=== PATIENT | male | born 1965 | race Caucasian/White ===

== ENCOUNTER 2017-05-03 11:46 | Outpatient (CLI) | payer MEDICAID, OTHER ==
[2017-05-03 12:17] LABS: #Basophils 0.1 thou/uL (0.0-0.2); #Eosinphils 0.1 thou/uL (0.0-0.7); #Lymphocytes 1.7 thou/uL (1.20-3.40); #Monocytes 0.6 thou/uL (0.11-0.59); #Neutrophils 9.3 thou/uL (1.40-6.50); %Basophils 0.5 % (0.0-1.0); %Eosinophils 0.9 % (0.0-10.0); %Lymphocytes 14.5 % (21.0-51.0); %Monocytes 4.7 % (0.0-10.0); %Neutrophils 79.4 % (42.0-75.0); Hemoglobin 16.4 g/dL (14.0-18.0); Mean Corpuscular Hemoglobin 32.1 pg (27.0-31.0); Mean Corpuscular Volume 94.5 fl (80.0-94.0); Mean Platelet Volume 9.6 fL (7.4-10.4); Platelet Count 188 thou/uL (130-400); RBC Distribution Width 12.6 % (11.5-14.5); Red Blood Cell (RBC) Count 5.09 mill/uL (4.70-6.10); White Blood Cell (WBC) Count 11.7 thou/uL (4.8-10.8)
[2017-05-03 12:33] LABS: Hemoglobin A1c 5.7 % (4.0-6.0)
[2017-05-03 12:35] LABS: ALT (SGPT) 40 U/L (8-55); AST (SGOT) 34 U/L (5-34); Albumin 4.3 g/dL (3.5-5.0); Alkaline Phosphatase 144 U/L (40-150); Anion Gap 15 mmol/L (10-20); BUN (Urea Nitrogen) 17 mg/dL (8.4-25.7); Bilirubin, Total 0.4 mg/dL (0.2-1.2); Calc. Creatinine Clearance 0 mL/min (70-130); Calcium 10.7 mg/dL (7.8-10.44); Carbon Dioxide 27 mmol/L (22-29); Cardiac Risk 4.8 (Less than 4.5); Chloride 103 mmol/L (98-107); Cholesterol 203 mg/dl (< 200 Desired); Estimated GFR-MDRD 84; Globulin 3.9 g/dL (2.4-3.5); Glucose 105 mg/dL (70-105); HDL Cholesterol 42 mg/dL (>60 Neg Risk); LDL Cholesterol, Calculated 126 mg/dL; Potassium 4.8 mmol/L (3.5-5.1); Protein, Total 8.2 g/dL (6.0-8.3); Sodium 140 mmol/L (136-145); Triglycerides 175 mg/dL (Less than 150)
== END 2017-05-03 11:47 | disposition home or self-care (01) ==
LOC: MADLABBHPM 11:46
PROVIDERS: ATTEND Family Medicine
DX: R03.0 Elevated blood-pressure reading, without diagnosis of hypertension (principal)
CPT/HCPCS: 36415; 80053; 80061; 83036; 84443; 85025

== ENCOUNTER 2017-07-02 09:38 | Outpatient (CLI) | payer OTHER ==
[~2017-07-02 09:38] MED LIST: Iopamidol 370 76% 100 ML VIAL ONE
[2017-07-02 10:31] LABS: Calc. Creatinine Clearance 0 mL/min (70-130); Estimated GFR-MDRD Greater than 90
--- NOTE | 2017-07-02 15:41 | CT ---
CT ABDOMEN WITH AND WITHOUT IV CONTRAST: DATE: 07/02/17. HISTORY: Complex renal cyst, followup evaluation of intrarenal as well as subcapsular hematoma left kidney. COMPARISON: Studies on 10/19/16 and 05/11/16. FINDINGS: There has been continued interval decrease in the size of the hemorrhagic cystic lesion within the m id portion of the left kidney. This previously measured 3.1 cm craniocaudal x 3.6 cm AP x 2.7 cm tr ansverse, and on today's examination this hemorrhagic cystic structure measures 1.9 cm craniocaudal x 2.7 cm AP x 1.9 cm transverse. There is no subcapsular hematoma seen on study in 2016. Nonobstructing superior pole left renal calculus is again present. IVC filter is again noted in place. Lung bases, liver, spleen, pancreas, bilateral adrenal glands, and right kidney demonstrate a normal CT appearance. There has been no other interval change from prior exam. IMPRESSION: 1. Continued interval decrease in size of hemorrhagic cystic lesion mid portion left kidney. 2. Stable nonobstructing superior pole left renal calculus. POS: [facility]
== END 2017-07-02 09:39 | disposition home or self-care (01) ==
LOC: MADLAB 09:38
PROVIDERS: ATTEND Urology
DX: N28.1 Cyst of kidney, acquired (principal); I26.99 Other pulmonary embolism without acute cor pulmonale; N20.0 Calculus of kidney
CPT/HCPCS: 36415; 74170; 82565

== ENCOUNTER 2017-07-13 15:10 | Emergency (ER) | payer OTHER ==
--- NOTE | 2017-07-13 16:00 | RAD ---
RIGHT ANKLE 3 VIEWS: HISTORY: Slipped down a few stairs 1 day ago. History of a fracture over a year ago. COMPARISON: None. FINDINGS: There is extensive lateral malleolar edema. Compression screws to the talar neck are present. No h ardware complication. 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 No displaced fracture or malalignment is appreciated. Heterotopic ossification on the medial and la teral ligamentous complexes. IMPRESSION: 1. Extensive degenerative changes and evidence of posttraumatic sequelae. 2. Bimalleolar edema suggests relatively recent ankle sprain. 3. No acute fracture or malalignment is appreciated. POS: [facility]
--- NOTE | 2017-07-13 16:33 | RAD ---
RIGHT FOOT 3 VIEWS: HISTORY: Pain. Slipped down a few stairs. COMPARISON: None. FINDINGS: There are erosions of the 5th metatarsal head and proximal phalanx base. There is periarticular ost eopenia and subchondral cyst formation of the great toe metatarsal phalangeal joint. Mild osteopeni a throughout the foot. Large joint effusion of the tibiotalar joint. Compression screws are present retrograde to the erica r head and neck. Lisfranc interval is maintained. IMPRESSION: 1. No acute fracture or malalignment. 2. Large effusion of the ankle joint may be reactive or due to trauma. 3. Erosions of the 5th metatarsal head and proximal phalanx base may be sequelae of inflammatory ar thropathy or gout. 4. Periarticular osteopenia of the great toe metatarsal phalangeal joint with subchondral cyst form ation could be due to inflammation or due to osteopenia. Follow up recommended. POS: [facility]
== END 2017-07-13 16:15 | disposition home or self-care (01) ==
LOC: MADERS 15:10
DX: S93.411A Sprain of calcaneofibular ligament of right ankle, initial encounter (principal); I10 Essential (primary) hypertension; Z79.82 Long term (current) use of aspirin; Z79.2 Long term (current) use of antibiotics; Z79.899 Other long term (current) drug therapy; Z79.891 Long term (current) use of opiate analgesic; W10.9XXA Fall (on) (from) unspecified stairs and steps, initial encounter

== ENCOUNTER 2017-10-29 11:40 | Outpatient (CLI) | payer OTHER ==
--- NOTE | 2017-10-29 13:02 | RAD ---
TWO VIEWS OF THE CHEST: HISTORY: Chronic cough. COMPARISON: 05/20/2016 FINDINGS: Two views of the chest show normal sized cardiomediastinal silhouette. There is no evidence of consol idation, mass, or pleural effusion. The bones are unremarkable. IMPRESSION: No evidence of acute cardiopulmonary disease. POS: [facility]
== END 2017-10-29 11:41 | disposition home or self-care (01) ==
LOC: MADRAD 11:40
PROVIDERS: ATTEND Family Medicine
DX: R05 Cough (principal)
CPT/HCPCS: 71046

== ENCOUNTER 2018-08-18 08:30 | Outpatient (CLI) | payer OTHER ==
[2018-08-18 09:09] LABS: Anion Gap 13 mmol/L (10-20); BUN (Urea Nitrogen) 15 mg/dL (8.4-25.7); Calc. Creatinine Clearance 0 mL/min (70-130); Calcium 9.2 mg/dL (7.8-10.44); Carbon Dioxide 25 mmol/L (22-29); Chloride 110 mmol/L (98-107); Estimated GFR-MDRD Greater than 90; Glucose 97 mg/dL (70-105); Potassium 3.9 mmol/L (3.5-5.1); Sodium 144 mmol/L (136-145)
--- NOTE | 2018-08-18 11:16 | CT ---
CT ABDOMEN AND PELVIS WITH AND WITHOUT IV CONTRAST: Date: 08/18/18 HISTORY: Complex renal cyst. COMPARISON: 07/02/17. FINDINGS: Interval decrease in the size of the previously noted hemorrhagic cystic lesion in the mid portion of the left kidney is seen, currently measuring about 2.0 cm. The nonobstructing superior pole left amelia al calculus is redemonstrated. No calculi seen in the right kidney or visualized portions of either u reter. No hydroureteronephrosis seen on either side. No enhancing mass is identified in either kidney . The lung bases are unremarkable. The liver, spleen, pancreas, and adrenal glands are normal. No calci fied gallstones are seen. IVC filter is again noted. No free air, free fluid, or lymphadenopathy iden tified. There are vascular calcifications without evidence of aneurysmal dilatation of the abdominal aorta. Degenerative changes are present in the spine. IMPRESSION: 1. Continued interval reduction in the size of the hemorrhagic cystic lesion of the left kidney sinc e 07/02/17. 2. Stable, nonobstructing left renal calculus. POS: [facility]
[2018-08-18 11:49] LABS: Bilirubin Negative (Negative); Blood, Urine Negative (Negative); Clarity Clear (Clear); Glucose, Urine (Dipstick) Negative (Negative); Leukocyte Negative (Negative); Nitrite Negative (Negative); Protein, Urine (Dipstick) Negative (Neg-Trace); Urobilinogen 0.2 mg/dL (0.2-1.0); pH, Urine 5.5 (5.0-9.0)
[2018-08-18 11:50] LABS: Bacteria/HPF Rare-Few HPF (None Seen); RBC/HPF 0-3 HPF (0-3); Squamous Epithelial 0-3 HPF (0-3); WBC/HPF 0-3 HPF (0-3)
[2018-08-18] MEDS ORDERED: Iopamidol 370 76% 100 ML VIAL ONE (23:11)
== END 2018-08-18 08:31 | disposition home or self-care (01) ==
LOC: MADLAB 08:30
PROVIDERS: ATTEND Urology
DX: N28.1 Cyst of kidney, acquired (principal); N20.0 Calculus of kidney; N28.9 Disorder of kidney and ureter, unspecified
CPT/HCPCS: 36415; 74170; 80048; 81001

== ENCOUNTER 2018-09-03 17:26 | Emergency (ER) | payer OTHER ==
[2018-09-03 18:18] LABS: Bilirubin Negative (Negative); Blood, Urine Moderate (Negative); Clarity Clear (Clear); Glucose, Urine (Dipstick) Negative (Negative); Leukocyte Negative (Negative); Nitrite Negative (Negative); Protein, Urine (Dipstick) Negative (Neg-Trace); Specific Gravity, Urine 1.015 (1.005-1.030); Urobilinogen 0.2 mg/dL (0.2-1.0); pH, Urine 5.5 (5.0-9.0)
[2018-09-03 18:27] LABS: Bacteria/HPF Rare-Few HPF (None Seen); Squamous Epithelial 0-3 HPF (0-3); WBC/HPF None Seen HPF (0-3)
[2018-09-03] MEDS ORDERED: Tamsulosin HCl 0.4 MG CAP ONE (19:02)
[2018-09-03] MEDS ORDERED: Ketorolac Tromethamine 30 MG/ML VIAL ONE (19:02)
[2018-09-03] MEDS ORDERED: Morphine 4 MG/ML VIAL ONE (19:02)
--- NOTE | 2018-09-03 22:29 | CT ---
ABDOMEN CT WITHOUT CONTRAST PELVIC CT WITHOUT CONTRAST 09/03/18 COMPARISON: 05/11/16, 08/18/18. FINDINGS: ABDOMEN CT: Lung bases are clear. Heart size is normal. No significant pericardial fluid. The visualized aorta is unremarkable. IVC filter is noted. Limited evaluation of solid organs due to lack of IV contrast. Grossly, no solid organ abnormality. T he gallbladder is contracted. No gastrohepatic, retrocrural, or periportal lymphadenopathy. There are stable nonspecific mesenteric lymph nodes. No mesenteric mass, free air, or free fluid. Punctate nonobstructing calculus in the upper pole of the left kidney. There is minimal left sided ob structive uropathy secondary to a solitary calculus in the distal left ureter. Limited evaluation of the alimentary canal. No evidence of bowel obstruction. Normal caliber appendix is noted. Unremarkable colon. PELVIC CT: No mass, lymphadenopathy, free air or free fluid. Urinary bladder is unremarkable. There are no lytic or blastic lesions in the osseous structures. IMPRESSION: 1. Minimal left sided obstructive uropathy secondary to a solitary calculus in the distal left u reter measuring between 4 to 5 mm. 2. Punctate 1 mm nonobstructing calculus in the left intrarenal collecting system. POS: [facility]
== END 2018-09-03 20:00 | disposition home or self-care (01) ==
LOC: MADERS 17:26
DX: N20.0 Calculus of kidney (principal); I10 Essential (primary) hypertension
CPT/HCPCS: 74176; 81003; 81015; 96374; 96375; J1885; J2270

== ENCOUNTER 2018-09-09 04:06 | Emergency (ER) | payer OTHER ==
[2018-09-09] MEDS ORDERED: Morphine 4 MG/ML VIAL ONE (04:56)
[2018-09-09] MEDS ORDERED: Tamsulosin HCl 0.4 MG CAP ONE ×2 (04:56→07:11)
[2018-09-09] MEDS ORDERED: Sodium Chloride 0.9% 1,000 ML ONE (04:56)
[2018-09-09] MEDS ORDERED: Metoclopramide HCl 10 MG/2 ML VIAL ONE (04:56)
[2018-09-09] MEDS ORDERED: Sodium Chloride 0.9% 100 ML ONE (04:56)
[2018-09-09 05:20] LABS: Bilirubin Negative (Negative); Blood, Urine Trace (Negative); Clarity Clear (Clear); Glucose, Urine (Dipstick) Negative (Negative); Leukocyte Negative (Negative); Nitrite Negative (Negative); Protein, Urine (Dipstick) Negative (Neg-Trace); Specific Gravity, Urine 1.015 (1.005-1.030); Urobilinogen 0.2 mg/dL (0.2-1.0)
[2018-09-09 05:44] LABS: Bacteria/HPF None Seen HPF (None Seen); WBC/HPF 0-3 HPF (0-3)
[2018-09-09 05:49] LABS: #Eosinphils 0.1 thou/uL (0.0-0.7); #Lymphocytes 1.5 thou/uL (1.20-3.40); #Monocytes 0.8 thou/uL (0.11-0.59); #Neutrophils 9.2 thou/uL (1.40-6.50); %Basophils 0.3 % (0.0-1.0); %Eosinophils 0.9 % (0.0-10.0); %Lymphocytes 12.8 % (21.0-51.0); %Monocytes 6.6 % (0.0-10.0); %Neutrophils 79.4 % (42.0-75.0); Hemoglobin 13.4 g/dL (14.0-18.0); Mean Corpuscular HGB CONC 32.7 g/dL (32.0-36.0); Mean Corpuscular Volume 91.7 fL (78.0-98.0); Mean Platelet Volume 9.5 fL (7.4-10.4); Platelet Count 193 thou/uL (130-400); RBC Distribution Width 12.3 % (11.5-14.5); Red Blood Cell (RBC) Count 4.47 mill/uL (4.70-6.10); White Blood Cell (WBC) Count 11.6 thou/uL (4.8-10.8)
[2018-09-09 05:54] LABS: Anion Gap 12 mmol/L (10-20); BUN (Urea Nitrogen) 25 mg/dL (8.4-25.7); Calc. Creatinine Clearance 0 mL/min (70-130); Calcium 8.9 mg/dL (7.8-10.44); Carbon Dioxide 23 mmol/L (22-29); Chloride 110 mmol/L (98-107); Estimated GFR-MDRD 78; Glucose 108 mg/dL (70-105); Potassium 3.9 mmol/L (3.5-5.1); Sodium 141 mmol/L (136-145)
[2018-09-09] MEDS ORDERED: Ketorolac Tromethamine 30 MG/ML VIAL ONE (06:47)
--- NOTE | 2018-09-09 08:15 | CT ---
PRELIMINARY REPORT/[facility]/EMERGENTY AFTER-HOURS PROCEDURE CT Abdomen and Pelvis Without Intravenous Contrast EXAM DATE/TIME: 09/09/2018 4:58 AM CLINICAL HISTORY: 53 years old, male; Pain and condition or disease; Kidney or ureter condition; Calculus (stone) in ur eter; Abdominal pain; Acute; Prior surgery; Surgery date: 6+ months; Surgery type: Anjel placement to f emur; Patient HX: Groin pain TECHNIQUE: Axial computed tomography images of the abdomen and pelvis without intravenous contrast. All CT scans at this facility use at least one of these dose optimization techniques: automated expos ure control; mA and/or kV adjustment per patient size (includes targeted exams where dose is matched to clinical indication); or iterative reconstruction. Coronal and sagittal reformatted images were created and reviewed. COMPARISON: CT Stone Protocol 04/18/2016 3:23 AM FINDINGS: Lower thorax: The lung bases are clear. Small hiatal hernia. There may be some mucosal/wall thickenin g involving the lower esophagus. This is nonspecific, but could represent evidence for esophagitis. Neoplasm not entirely excluded. Please correlate clinically. ABDOMEN: Liver: Unremarkable. Gallbladder and bile ducts: No definite gallbladder abnormality by CT. No biliary tree dilation. Pancreas: Unremarkable. Spleen: Unremarkable. Adrenals: Unremarkable. Kidneys and ureters: Right kidney: No intrarenal calculus, hydronephrosis or visible mass. No hydroureter or visible ureteral calculus. Left kidney: Possibly one or 2 very small left intrarenal calculi. Mild left hydronephrosis and hydroureter. There is a 3-4 mm distal left ureteral calculus, about 1 cm from the UVJ. If there is concern for renal mass, postcontrast CT would be more sensitive. Stomach and bowel: There are no CT findings to strongly suggest diverticulitis. Appendix: The appendix is probably identified and there are no suspicious findings for appendicitis.N o pericecal inflammatory changes are seen. PELVIS: Bladder: Urinary bladder appears essentially unremarkable by CT. Reproductive: Unremarkable as visualized. ABDOMEN and PELVIS: Intraperitoneal space: No free air, ascites, or bowel distention. No abnormal mass or fluid collection in the pelvis. Bones/joints: Apparent old rib fractures again noted. Soft tissues: No significant acute finding. Vasculature: No evidence for abdominal aortic aneurysm. An IVC filter is present. Lymph nodes: No retroperitoneal adenopathy. IMPRESSION: 1. 3-4 mm distal left ureteral calculus, details above. 2. Mild left hydronephrosis and hydroureter. 3. Possible very small left intrarenal calculi. 4. No CT findings to suggest appendicitis. 5. Small hiatal hernia. 6. Possibly some thickening of the lower esophagus, see above discussion. 7. Other findings discussed above. Thank you for allowing us to participate in the care of your patient. Dictated and Authenticated by: Clyde Davidson MD 09/09/2018 6:12 AM Central Time ([place] & [place]) FINAL REPORT NONCONTRAST CT OF THE ABDOMEN AND PELVIS: Date: 09/09/18 INDICATION: History of flank pain and renal stones. IMPRESSION: I agree with the preliminary report provided by Wilfredo. There is a persistent 3-4 mm distal left ureteral calculus near the left UVJ causing mild left hydron ephrosis. There are small, 1-2 mm, calculi within the superior pole of the left kidney. Other finding s as above. POS: [facility]
== END 2018-09-09 08:41 | disposition home or self-care (01) ==
LOC: MADERS 04:06
DX: N13.2 Hydronephrosis with renal and ureteral calculous obstruction (principal); I10 Essential (primary) hypertension; Z79.899 Other long term (current) drug therapy; Z79.82 Long term (current) use of aspirin
CPT/HCPCS: 36415; 74176; 80048; 81003; 81015; 85025; 96361; 96374; 96375; J1885; J2270; J2765; J7050

== ENCOUNTER 2018-10-06 04:32 | Emergency (ER) | payer OTHER ==
[2018-10-06] MEDS ORDERED: Morphine 10 MG/ML VIAL ONE (05:00)
[2018-10-06] MEDS ORDERED: Ketorolac Tromethamine 60 MG/2 ML VIAL ONE (05:00)
[2018-10-06] MEDS ORDERED: Tamsulosin HCl 0.4 MG CAP ONE (05:00)
[2018-10-06] MEDS ORDERED: Acetaminophen 500 MG TAB ONE (05:01)
== END 2018-10-06 06:25 | disposition home or self-care (01) ==
LOC: MADERS 04:32
DX: N20.0 Calculus of kidney (principal); Z79.899 Other long term (current) drug therapy; Z79.82 Long term (current) use of aspirin
CPT/HCPCS: 96372; J1885; J2270

== ENCOUNTER 2018-11-10 07:59 | Outpatient (CLI) | payer OTHER ==
[2018-11-10 09:07] LABS: Bilirubin Negative (Negative); Blood, Urine Negative (Negative); Clarity Clear (Clear); Glucose, Urine (Dipstick) Negative (Negative); Leukocyte Negative (Negative); Nitrite Negative (Negative); Protein, Urine (Dipstick) Trace mg/dL (Neg-Trace); Urobilinogen 0.2 mg/dL (0.2-1.0)
[2018-11-10 09:14] LABS: Specific Gravity, Urine 1.028 (1.002-1.036)
[2018-11-10 09:15] LABS: Bacteria/HPF Rare-Few HPF (None Seen); Squamous Epithelial 0-3 HPF (0-3); Transitional Epithelial 0-3 HPF (0-3); WBC/HPF 0-3 HPF (0-3)
--- NOTE | 2018-11-10 09:22 | ULT ---
RENAL ULTRASOUND: History: Bilateral flank pain. History of stone removal two weeks ago. Comparison: 09-20-18 CT FINDINGS: Real-time imaging of the right and left kidneys were performed. The right kidney measures 9.6. The le ft kidney 9.3 cm in size. There are no signs of cysts, mass, or obstruction. I do not identify any de finite renal calculi. The bladder region appears unremarkable. There is no post void residual on post void imaging of the bladder. IMPRESSION: Unremarkable renal ultrasound. POS: [facility]
[2018-11-10 12:42] LABS: RBC/HPF 0-3 HPF (0-3)
--- NOTE | 2018-11-10 13:36 | RAD ---
LEFT KNEE FOUR VIEWS: History: Left knee pain. FINDINGS: There is severe tricompartment arthritic change of the knee with marked medial and lateral compartmen t narrowing. No fracture or joint effusion. IMPRESSION: Severe osteoarthritic change of the knee. POS: [facility]
== END 2018-11-10 08:00 | disposition home or self-care (01) ==
LOC: MADLABBHPM 07:59
PROVIDERS: ATTEND Urology
DX: M25.562 Pain in left knee (principal); N13.2 Hydronephrosis with renal and ureteral calculous obstruction; M17.12 Unilateral primary osteoarthritis, left knee
CPT/HCPCS: 76770; 81001; 87086

== ENCOUNTER 2019-05-31 20:55 | Emergency (ER) | payer OTHER | END 2019-05-31 21:18 | disposition home or self-care (01) | LOC: MADERS 20:55 | DX: R05 Cough (principal); I10 Essential (primary) hypertension | CPT/HCPCS: 99281 ==

== ENCOUNTER 2019-06-16 14:57 | Emergency (ER) | payer OTHER ==
[~2019-06-16 14:57] MED LIST changes: -Iopamidol 370 76% 100 ML VIAL ONE; +Iopamidol 370 76% 125 ML VIAL FS ONE; +Sodium Chloride 0.9% 100 ML BAG ONE
[2019-06-16 15:31] LABS: #Eosinphils 0.1 thou/uL (0.0-0.7); #Lymphocytes 1.9 thou/uL (1.20-3.40); #Monocytes 0.5 thou/uL (0.11-0.59); #Neutrophils 3.9 thou/uL (1.40-6.50); %Basophils 0.7 % (0.0-1.0); %Eosinophils 2.1 % (0.0-10.0); %Monocytes 7.3 % (0.0-10.0); Hemoglobin 13.8 g/dL (14.0-18.0); Mean Corpuscular HGB CONC 34.7 g/dL (32.0-36.0); Mean Corpuscular Hemoglobin 30.9 pg (27.0-31.0); Mean Corpuscular Volume 89.1 fL (78.0-98.0); Mean Platelet Volume 9.7 fL (7.4-10.4); Platelet Count 187 thou/uL (130-400); Red Blood Cell (RBC) Count 4.47 mill/uL (4.70-6.10); White Blood Cell (WBC) Count 6.4 thou/uL (4.8-10.8)
--- NOTE | 2019-06-16 15:41 | RAD ---
EXAM: Portable chest PROVIDED CLINICAL HISTORY: Chest pain COMPARISON: 05/20/2016 FINDINGS: Cardiac and mediastinal silhouette is within normal limits. No focal consolidation, pleural fluid or pneumothorax evident. IMPRESSION: No evidence for an acute cardiopulmonary process.
[2019-06-16 15:46] LABS: ALT (SGPT) 32 U/L (8-55); AST (SGOT) 25 U/L (5-34); Albumin 4.2 g/dL (3.5-5.0); Alkaline Phosphatase 126 U/L (40-150); Anion Gap 13 mmol/L (10-20); BUN (Urea Nitrogen) 17 mg/dL (8.4-25.7); Bilirubin, Total 0.4 mg/dL (0.2-1.2); CK (CPK) 125 U/L (30-200); Calc. Creatinine Clearance 0 mL/min (70-130); Calcium 9.5 mg/dL (7.8-10.44); Carbon Dioxide 24 mmol/L (22-29); Chloride 106 mmol/L (98-107); Estimated GFR-MDRD Greater than 90; Globulin 3.3 g/dL (2.4-3.5); Glucose 160 mg/dL (70-105); Potassium 4.1 mmol/L (3.5-5.1); Protein, Total 7.5 g/dL (6.0-8.3); Sodium 139 mmol/L (136-145)
[2019-06-16 15:48] LABS: CKMB 1.5 ng/mL (0-6.6)
--- NOTE | 2019-06-16 16:06 | CT ---
EXAM: CT pulmonary angiogram with IV contrast and 3-D MIP reconstructions PROVIDED CLINICAL HISTORY: Chest pain COMPARISON: 04/08/2016 FINDINGS: There is no evidence for central or segmental pulmonary embolus. The lungs are free of significant op acity. No pleural fluid or pneumothorax apparent. No evidence for thoracic lymph node enlargement. The airway appears patent and of normal caliber. The visualized portions of the upper abdomen demonst rate no acute findings. The osseous structures demonstrate no concerning lytic or blastic lesions. IMPRESSION: No evidence for central or segmental pulmonary embolus.
[2019-06-16] MEDS ORDERED: Ketorolac Tromethamine 30 MG/ML VIAL ONE (16:29)
[2019-06-16] MEDS ORDERED: Metoclopramide HCl 10 MG/2 ML VIAL ONE (16:29)
== END 2019-06-16 17:11 | disposition home or self-care (01) ==
LOC: MADERS 14:57
DX: K21.9 Gastro-esophageal reflux disease without esophagitis (principal); E78.5 Hyperlipidemia, unspecified; I10 Essential (primary) hypertension; F41.9 Anxiety disorder, unspecified; F32.9 Major depressive disorder, single episode, unspecified; Z79.899 Other long term (current) drug therapy; Z86.718 Personal history of other venous thrombosis and embolism
CPT/HCPCS: 71045; 71275; 80053; 82550; 82553; 83880; 84484; 85025; 85379; 93005; 96374; 96375; J1885; J2765; J3490; Q9967

== ENCOUNTER 2019-11-06 08:46 | Outpatient (CLI) | payer MEDICAID, OTHER ==
[2019-11-06 10:12] LABS: #Eosinphils 0.1 thou/uL (0.0-0.7); #Monocytes 0.5 thou/uL (0.11-0.59); #Neutrophils 5.9 thou/uL (1.40-6.50); %Basophils 0.5 % (0.0-1.0); %Eosinophils 1.2 % (0.0-10.0); %Lymphocytes 23.1 % (21.0-51.0); %Monocytes 6.2 % (0.0-10.0); Hemoglobin 14.3 g/dL (14.0-18.0); Mean Corpuscular HGB CONC 30.9 g/dL (32.0-36.0); Mean Corpuscular Hemoglobin 29.4 pg (27.0-31.0); Mean Corpuscular Volume 95.1 fL (78.0-98.0); Mean Platelet Volume 9.3 fL (7.4-10.4); Platelet Count 199 thou/uL (130-400); RBC Distribution Width 12.1 % (11.5-14.5); Red Blood Cell (RBC) Count 4.88 mill/uL (4.70-6.10); White Blood Cell (WBC) Count 8.5 thou/uL (4.8-10.8)
[2019-11-06 10:16] LABS: ALT (SGPT) 30 U/L (8-55); AST (SGOT) 20 U/L (5-34); Albumin 4.3 g/dL (3.5-5.0); Alkaline Phosphatase 135 U/L (40-110); Anion Gap 13 mmol/L (10-20); BUN (Urea Nitrogen) 24 mg/dL (8.4-25.7); Bilirubin, Total 0.5 mg/dL (0.2-1.2); Calc. Creatinine Clearance 0 mL/min (70-130); Calcium 9.6 mg/dL (7.8-10.44); Carbon Dioxide 26 mmol/L (22-29); Cardiac Risk 2.8 (Less than 4.5); Chloride 107 mmol/L (98-107); Cholesterol 154 mg/dl (< 200 Desired); Estimated GFR-MDRD 76; Globulin 3.1 g/dL (2.4-3.5); Glucose 105 mg/dL (70-105); HDL Cholesterol 55 mg/dL (>60 Neg Risk); LDL Cholesterol, Calculated 63 mg/dL; Lipase 23 U/L (8-78); Potassium 4.2 mmol/L (3.5-5.1); Protein, Total 7.4 g/dL (6.0-8.3); Sodium 142 mmol/L (136-145); Triglycerides 179 mg/dL (Less than 150)
[2019-11-06 10:37] LABS: Bilirubin Negative (Negative); Blood, Urine Negative (Negative); Clarity Clear (Clear); Glucose, Urine (Dipstick) Negative (Negative); Leukocyte Negative (Negative); Nitrite Negative (Negative); Protein, Urine (Dipstick) Negative (Neg-Trace); Urobilinogen 0.2 mg/dL (Less than 2)
[2019-11-06 10:42] LABS: Bacteria/HPF None Seen HPF (None Seen); RBC/HPF None Seen HPF (0-3); Squamous Epithelial 0-3 HPF (0-3); WBC/HPF None Seen HPF (0-3)
--- NOTE | 2019-11-06 10:43 | ULT ---
ABDOMINAL ULTRASOUND: INDICATION: Abdominal pain. COMPARISON: Correlation is made to noncontrast CT abdomen and pelvis 09/20/[address] abdomen 2017. FINDINGS: Gallbladder shows no evidence of gallstones. Gallbladder wall is normal. The technologist describes a positive Wilson's sign on examination. Common bile duct is normal caliber. Visualized aorta, IVC, and pancreas appear unremarkable. Pancreas is mostly obscured. Liver and spleen appear unremarkable. Both kidneys are imaged. Both kidneys measure 9-10 cm length. There is a cortical protrusion from t he mid left kidney which the technologist described as possible solid mass measuring approximately 2. 0 cm. Prior contrast CTs have described a low-density complex cystic mass in the posterior left south l cortex which was previously described as possibly a hemorrhagic cyst. Today's ultrasound shows no evidence of cystic component. Recommend repeat evaluation with pre- and postcontrast CT abdomen for further characterization of this lesion and direct comparison to prior CT exams. IMPRESSION: 1. Question hypoechoic mass in the left renal cortex. This is at a site of previously described com plex cystic lesion. Recommend CT with and without contrast for direct comparison to prior studies. 2. Abdominal ultrasound otherwise unremarkable. No evidence of gallstones. The technologist did de scribe a positive Wilson's sign. POS: [facility]
== END 2019-11-06 08:47 | disposition home or self-care (01) ==
LOC: MADLABBHPM 08:46
PROVIDERS: ATTEND Family Medicine
DX: R10.9 Unspecified abdominal pain (principal); E78.2 Mixed hyperlipidemia
CPT/HCPCS: 36415; 80053; 80061; 81001; 82150; 83690; 85025; 93975

== ENCOUNTER 2020-12-12 07:41 | Outpatient (CLI) | payer OTHER | END 2020-12-12 07:42 | disposition home or self-care (01) | LOC: MADRAD 07:41 | PROVIDERS: ATTEND Urology | DX: N32.1 Vesicointestinal fistula (principal); N28.1 Cyst of kidney, acquired | CPT/HCPCS: 76770 ==